=== PATIENT | female | born 1980 | race Caucasian/White ===

== ENCOUNTER 2021-04-03 18:42 | Emergency (ER) | payer MEDICAID ==
[~2021-04-03] VITALS: Ht 165.1 cm; Wt 68.0 kg
[2021-04-04] MEDS ORDERED: HYDROCODONE/ACETAMINOPHEN 5/325MG TABLET PO ONE (01:00)
[2021-04-04 04:09] VITALS: BP 128/83
== END 2021-04-04 04:09 | disposition home or self-care (01) ==
LOC: ER 18:42
DX: S06.9X1A Unspecified intracranial injury with loss of consciousness of 30 minutes or less, initial encounter (principal); R51.9 Headache, unspecified; R11.10 Vomiting, unspecified; I10 Essential (primary) hypertension; X58.XXXA Exposure to other specified factors, initial encounter; Y93.89 Activity, other specified; Y92.89 Other specified places as the place of occurrence of the external cause; Y99.8 Other external cause status
CPT/HCPCS: 81025; 99284